=== PATIENT | female | born 1955 | race Caucasian/White ===

== ENCOUNTER 2017-01-16 08:42 | Day surgery (SDC) | payer OTHER ==
[~2017-01-16] VITALS: Ht 160 cm; Wt 51.7 kg
[2017-01-16 10:30] VITALS: Ht 160 cm; Wt 51.7 kg
[2017-01-16 10:45] VITALS: BP 114/58; PULSE 71; RESP 17
[2017-01-16] MEDS ORDERED: LORATADINE PO (10:47)
[2017-01-16] MEDS ORDERED: OMEPRAZOLE PO (10:47)
[2017-01-16] MEDS ORDERED: FAMOTIDINE PO (10:47)
[2017-01-16] MEDS ORDERED: LEVOTHYROXINE PO (10:47)
[2017-01-16] MEDS ORDERED: ATORVASTATIN PO (10:47)
[2017-01-16] MEDS ORDERED: LIDOCAINE 4% SOLUTION 50 ML BTL ONE (10:50)
[2017-01-16 11:40] VITALS: BP 117/57; PULSE 64; RESP 16
[2017-01-16] MEDS ORDERED: MIDAZOLAM 1 MG/ML 2 ML INJ ONE (11:40)
[2017-01-16] MEDS ORDERED: FENTAnyl 50 MCG/ML VIAL ONE (11:40)
--- NOTE | 2017-01-16 11:52 | GILP ---
DATE OF PROCEDURE: 01/16/2017 PROCEDURE: Esophagogastroduodenoscopy. PREOPERATIVE DIAGNOSIS: Patient presenting with history of chronic abdominal pain unresponsive to r outine therapy. She takes omeprazole and famotidine which does not help, rule out peptic ulcer dise ase, gastritis, etc. POSTOPERATIVE DIAGNOSES: 1. Moderate degree of diffuse gastritis. 2. Irregular GE junction. Biopsies were done. DESCRIPTION OF PROCEDURE: After the informed written consent was obtained, the patient was asked to lie on the left lateral side, 2 mg Versed and 50 mcg of fentanyl was given as intravenous anesthesi a. When the patient became somnolent, the Olympus video upper endoscope was introduced into the orophar ynx, then into the esophagus. GE junction was found to be irregular and erythematous. Biopsies wer e done to rule out Mari's esophagus. Scope at this time was advanced into the stomach. Stomach showed evidence of a diffuse erythema and friability all over the gastric mucosa. Biopsy was done f rom the antrum to the lesser curvature of the fundus to rule out H. pylori infection. Duodenum show ed evidence of minimal erythema in the bulb and postbulbar area indicating duodenitis. No ulcer not ed. Scope at this time was withdrawn. On the way out, no additional abnormalities detected and the procedure was terminated. PLAN: Recommend change the omeprazole to Dexilant 60 mg a day for 2 months. Dictated By: MK COYNE/CASTILLO Conf#: [id number] DID#: [id number] CC: MK LOZANO MD; MAGNOLIA VALENCIA;*End*
== END 2017-01-16 12:44 | disposition home or self-care (01) ==
LOC: GIL 08:42
PROVIDERS: ATTEND Internal Medicine Gastroenterology
DX: K29.50 Unspecified chronic gastritis without bleeding (principal); K44.9 Diaphragmatic hernia without obstruction or gangrene
CPT/HCPCS: 43239; 88305; 88312; 88313; J2250; J3010; Z7610

== ENCOUNTER 2017-11-14 21:27 | Inpatient (IN) | END 2017-11-19 18:10 | DRG 494 ==

== ENCOUNTER 2018-04-18 21:58 | Emergency (ER) | END 2018-04-18 23:36 | disposition home or self-care (01) ==